=== PATIENT | female | born 1945 | race Caucasian/White ===

== ENCOUNTER 2018-07-21 09:34 | Inpatient (IN) | payer MEDICARE, OTHER ==
[~2018-07-21] VITALS: Ht 160 cm; Wt 71.0 kg
[2018-08-03] VITALS (11 sets, daily range): BP systolic 133–170; BP diastolic 54–77; PULSE 51–98; TEMP 97.4–98.5
[2018-08-03] MEDS ORDERED: COZAAR100 MG PO (08:30)
[2018-08-03] MEDS ORDERED: LOPRESSOR 550 MG/TAB PO (08:31)
[2018-08-03] MEDS ORDERED: ESTRADERM0.05 MG/24 TD (08:32)
[2018-08-03] MEDS ORDERED: TURMERIC500 MG PO (08:33)
[2018-08-03] MEDS ORDERED: THE MEDICINE S200 M2 PO (08:33)
[2018-08-03] MEDS ORDERED: MASON NATURAL600 MG PO (08:34)
[2018-08-03] MEDS ORDERED: PROBIOTIC FORMU1 CAP PO (08:34)
[2018-08-03] MEDS ORDERED: TYLENOL 500MG500 MG PO (08:35)
[2018-08-03 13:32] LABS: BASO % 0.2 % (0.0-2.0); EOS % 0.1 % (0-4.0); GRAN # 14.4 (1.4-6.5); GRAN % 89.4 % (42.2-75.2); HEMATOCRIT 37.7 % (37.0-47.0); HEMOGLOBIN 12.5 g/dl (12.5-16.0); LYMPH # 1.3 (1.2-3.4); MEAN CELL VOLUME 95 fl (80.0-100.0); MEAN CORPUSCULAR HEMOGLOBIN 32 pg (27.0-31.0); MEAN CORPUSCULAR HGB CONC 33 g/dl (33.0-37.0); MEAN PLATELET VOLUME 10.4 fl (7.4-10.4); MONO # 0.3 (0.1-0.6); MONO % 1.6 % (1.7-9.3); PLATELET COUNT 255 K/mm3 (130-400); RED BLOOD COUNT 3.95 M/mm3 (4.10-5.30); REDCELL DISTRIBUTION WIDTH-CV 12.3 % (11.5-14.5)
[2018-08-03 13:37] LABS: CALCIUM 9.1 mg/dL (8.4-10.2); CREATININE, serum 0.96 mg/dL (0.52-1.25); POTASSIUM 4.6 mmol/L (3.4-5.0)
[2018-08-04] VITALS (7 sets, daily range): BP systolic 121–155; BP diastolic 49–70; PULSE 47–86; TEMP 97.9–98.8
[2018-08-04 06:18] LABS: BASO % 0.2 % (0.0-2.0); GRAN # 10.2 (1.4-6.5); GRAN % 77.9 % (42.2-75.2); LYMPH # 1.9 (1.2-3.4); LYMPH % 14.5 % (20.0-51.0); MEAN CELL VOLUME 94 fl (80.0-100.0); MEAN CORPUSCULAR HGB CONC 33 g/dl (33.0-37.0); MEAN PLATELET VOLUME 10.8 fl (7.4-10.4); MONO # 0.9 (0.1-0.6); MONO % 6.7 % (1.7-9.3); PLATELET COUNT 266 K/mm3 (130-400); RED BLOOD COUNT 3.25 M/mm3 (4.10-5.30); REDCELL DISTRIBUTION WIDTH-CV 11.9 % (11.5-14.5)
[2018-08-04 06:21] LABS: HEMATOCRIT 30.6 % (37.0-47.0); HEMOGLOBIN 10.2 g/dl (12.5-16.0); MEAN CORPUSCULAR HEMOGLOBIN 31 pg (27.0-31.0)
[2018-08-04 06:42] LABS: CALCIUM 8.6 mg/dL (8.4-10.2); CREATININE, serum 0.99 mg/dL (0.52-1.25); POTASSIUM 4.7 mmol/L (3.4-5.0)
[2018-08-05 00:09] VITALS: BP 155/61; PULSE 54; TEMP 97.5
[2018-08-05 04:15] VITALS: BP 132/51; PULSE 51; TEMP 98.2
[2018-08-05 05:38] LABS: HEMATOCRIT 29.4 % (37.0-47.0); HEMOGLOBIN 10.1 g/dl (12.5-16.0); MEAN CELL VOLUME 92 fl (80.0-100.0); MEAN CORPUSCULAR HEMOGLOBIN 32 pg (27.0-31.0); MEAN CORPUSCULAR HGB CONC 34 g/dl (33.0-37.0); MEAN PLATELET VOLUME 10.5 fl (7.4-10.4); PLATELET COUNT 224 K/mm3 (130-400); RED BLOOD COUNT 3.19 M/mm3 (4.10-5.30); REDCELL DISTRIBUTION WIDTH-CV 11.9 % (11.5-14.5)
[2018-08-05 07:24] VITALS: BP 121/51; PULSE 58; TEMP 98.6
[2018-08-05 12:14] VITALS: BP 127/50; PULSE 61; TEMP 98.9
== END 2018-08-05 13:50 | disposition home or self-care (01) | DRG 658 ==
LOC: INPTSU 08-03 07:32 → SURG 08-03 09:00
PROVIDERS: Urology
PROC: 0DNE4ZZ Release Large Intestine, Percutaneous Endoscopic Approach (ICD-10-PCS; 2018-08-03)
PROC: 8E0W4CZ Robotic Assisted Procedure of Trunk Region, Percutaneous Endoscopic Approach (ICD-10-PCS; 2018-08-03)
PROC: 0TB04ZZ Excision of Right Kidney, Percutaneous Endoscopic Approach (ICD-10-PCS; principal; 2018-08-03 09:30)
DX: D17.71 Benign lipomatous neoplasm of kidney (principal); K66.0 Peritoneal adhesions (postprocedural) (postinfection); I10 Essential (primary) hypertension
CPT/HCPCS: A4314; C1713; J0690; J1100; J2250; J2405; J2704; J2795; J3010; J7120